=== PATIENT | male | born 1995 | race Caucasian/White ===

== ENCOUNTER 2021-10-04 07:47 | Inpatient (IN) ==
[2021-10-04] MEDS ORDERED: SODIUM CHLORIDE 0.9% 1000ML 1,000 ML IV STA (08:22)
[2021-10-04] MEDS ORDERED: ONDANSETRON INJ 2 MG/ML 2 ML VIAL IV STA (08:22)
[2021-10-04 08:39] LABS: Hematocrit (blood only) 52.5 % (42-52); Hemoglobin 18.2 g/dL (14.0-18.0); Immature Granulocytes # (auto) 0.04 K/uL (0.00-0.02); Immature Granulocytes % (auto) 0.2 %; Lymphocytes # (auto) 1.35 K/uL (1.2-3.4); Lymphocytes % (auto) 8.1 %; Mean Corpuscular Hgb Conc 34.7 g/dL (32-36); Mean Corpuscular Volume 86.6 fL (80-100); Mean Platelet Volume 11.5 fL (7.4-10.4); Monocytes # (auto) 0.39 K/uL (0.11-0.59); Monocytes % (auto) 2.3 %; Neutrophils # (auto) 14.82 K/uL (1.4-6.5); Neutrophils % (auto) 89.4 %; Platelet Count 257 K/uL (130-400); RDW Coefficient of Variation 12.9 % (11.5-14.5); RDW Standard Deviation 41.1 fL (36.4-46.3); Red Blood Count 6.06 M/uL (4.7-6.1)
--- NOTE | 2021-10-04 08:50 | Emergency Department Note ---
Impression & Plan DKA (diabetic ketoacidosis), Vomiting, Abdominal pain ED Provider Note NAME: TRU PAULINO AGE: 25 SEX: M : 1995 ARRIVES VIA: Walk-In INFORMANT: Patient, ED PROVIDER(S): Yuri Rousseau DO CHIEF COMPLAINT: Vomiting HPI: The patient is a 25-year-old male who is currently a college student who presented to the emergency department with nausea vomiting. The patient states that he started having symptoms approximately 2 days ago. The patient was eating at a fast food restaurant and started having symptoms after this. No other people were eating with him and he is unsure if he had something bad to eat at the restaurant which is why he is vomiting. He started noticing upper abdominal pain over the last 24 hours. He thinks he is vomited approximately 10 times over the last 24 hours. He was seen in our facility yesterday with similar complaints. At that time he was treated with IV fluids and was feeling much better. He continued to have worsening symptoms over the last 12 hours presented to the emergency department again today because his symptoms were not improving. He has a history of diabetes. He is a history of DKA in the past. He notices upper abdominal pain and lower chest pain. He states this began after the vomiting worsen. He notices no lower abdominal pain. He notices decreased urine output. He denies having any back pain. He has had no recent trauma. He denies having any fever. He has been trying the medication that was prescribed for him with only minimal relief in symptoms. The patient does not use marijuana products. ROS: See above HPI for pertinent positives & negatives. A total of 10 systems reviewed and were otherwise negative. PAST MEDICAL HISTORY: See Below PAST SURGICAL HISTORY: See Below FAMILY HISTORY: See Below SOCIAL HISTORY: See Below HOME MEDICATIONS: See Below ALLERGIES: See Below VITALS: See Below PHYSICAL EXAMINATION: GENERAL: The patient is awake and alert. The patient is somewhat anxious appearing. EYES: The conjunctivae are clear. The pupils are round and reactive. EARS, NOSE, MOUTH AND THROAT: The nose is without any evidence of any deformity. Mucous membranes are dry. NECK: The neck is nontender and supple. RESPIRATORY: Normal respiratory effort is noted there is no evidence of wheezing rhonchi or rales CARDIOVASCULAR: Tachycardic rate with regular rhythm was noted. There is no definite murmur. GASTROINTESTINAL: The abdomen is soft and mildly distended. There is no guarding rigidity appreciated. There is tenderness in the upper abdomen. MUSCULOSKELETAL/EXTREMITIES: There is no evidence of gross deformity full range of motion is noted in the hips and shoulders. SKIN: There is no obvious evidence of any rash. There are no petechiae, pallor or cyanosis noted. NEUROLOGIC: Patient is awake alert and oriented x3 strength is symmetric patellar reflexes are 2+ bilaterally MEDICAL DECISION MAKING: The patient is a 25-year-old male who presented to the emergency department for an evaluation of nausea vomiting. The patient had upper abdominal pain. He was seen in our facility for similar complaints. He was treated and was able to be discharged home. He returns today after nausea and vomiting became worse. He was treated with IV fluids and IV antiemetics but symptoms became worsened. The patient has a history of diabetes. He appears to have DKA by his laboratory findings which likely could be treated while in the emergency department but he continues to have vomiting. For this reason I do not feel he would do well as an outpatient. The [facility] hospitalist group was notified about the patient. They will evaluate the patient in the emergency department. Triage Nursing notes reviewed. Prior medical records reviewed Vital Signs: reviewed and remarkable for elevated blood pressure and t achycardia. Differential diagnosis: Etiologies such as appendicitis, diverticulitis, obstruction, inflammatory bowel disease, renal colic, PUD, biliary pathology, pancreatitis, mesenteric ischemia, aortic pathology, infections, genitourinary, UTI, perforated viscus, as well as others were entertained. ER treatment provided: See below Diagnostics interpreted by me: ECG: EKG was obtained in the emergency department. My interpretation is sinus tachycardia 118 bpm. There is no ectopy. There is no acute ST segment abnormalities noted. This was compared to a tracing from January 032020. There is an increase in the ventricular rate otherwise no significant changes were noted. Cardiac Monitoring: An order was placed for continuous cardiac monitoring. The monitor shows a rate of 110 bpm with sinus tachycardia Laboratory studies: As stated above and show below. Imaging studies: See below Consultation(s): Dr. Guzman was notified about the patient. Past Med/Surg History Medical History (Updated 10/04/21 @ 12:05 by Yuir Rousseau DO) ADHD Depression DKA (diabetic ketoacidoses) Hyperlipidemia Obesity (BMI 30-39.9) Uncontrolled diabetes mellitus Surgical History No pertinent past surgical history Family History Grandfather (Paternal) Diabetes Aunt Diabetes Sister Diabetes Mother Hypertension Other No pertinent family history Social History Smoking Status: Never smoker Hx Alcohol Use: No Hx Substance Use: No Preferred Language: Latvian Communication Ability: Effective Beliefs That Will Affect Care: None Current Living Situation: Other Current Living Situation Comment: Student housing Feels Safe at Home: Yes Assistive Devices: None Allergies Allergies Allergy/AdvReac Type Severity Reaction Status Date / Time No Known Allergies Allergy Verified 10/04/21 09:51 Home Meds Home Medications Medication Instructions Recorded Confirmed lisinopril 20 mg tablet 20 mg PO QAM 08/25/19 10/04/21 fluoxetine 20 mg tablet 20 mg PO QAM 04/18/21 10/04/21 methylphenidate HCl 54 mg 54 mg PO QAM 04/18/21 10/04/21 tablet,extended release 24 hr (Concerta) semaglutide 1 mg/dose (2 mg/1.5 1 mg SUBCUT WK 10/03/21 10/04/21 mL) subcutaneous pen injector (Ozempic) insulin glargine 100 unit/mL (3 88 unit SUBCUT QAM 10/04/21 10/04/21 mL) subcutaneous pen (Lantus Solostar U-100 Insulin) Previous Rx's Medication Instructions Recorded OneTouch Delica Plus Lancet 33 #400 ea NS 09/29/19 gauge (lancets) OneTouch Verio test strips (blood #400 ea NS 10/02/20 sugar diagnostic) metformin 500 mg tablet 1,000 mg PO BID 90 Days #360 tab 04/19/21 insulin lispro 200 unit/mL (3 mL) See Rx Instructions SUBCUT BID #30 05/09/21 subcutaneous pen (Humalog KwikPen ml U-200 Insulin) pen needle, diabetic 32 gauge x #150 ea 05/09/21" (BD Ultra-Fine Amanda Pen Needle) Results & Data (ED) Vital Signs Vital Signs - 24 hr 11/19/21 08:10 10/04/21 09:26 10/04/21 11:00 Temperature 36.4 C L Temperature Source Oral Pulse Rate 118 H Pulse Rate [Finger] 97 H 110 H Pulse Rhythm [Finger] Regular Pulse Strength [Finger] Normal Respiratory Rate 20 18 18 Respiratory Effort / Characteristics Non-Labored Spontaneous Respiratory Depth Normal Respiratory Pattern Regular Blood Pressure 128/89 Blood Pressure [Right Arm] 162/93 H 157/96 H Blood Pressure Mean 102 Blood Pressure Mean [Right Arm] 116 116 Blood Pressure Position [Right Arm] Lying Pulse Oximetry 98 100 99 Oxygen Delivery Method Room Air Room Air Room Air Sepsis Recent Fever Within 48 Hours No Sepsis New/Unexplained Change in Mental Status No Sepsis Action Taken by Nursing No Action Required Home Medications Current Medication List: was personally reviewed by me Laboratory Data Attestation: I reviewed the patient's lab results. Result diagrams: 10/04/21 08:30 10/04/21 08:30 Lab Results 10/04/21 10/04/21 10/04/21 Range/Units 08:30 08:30 09:34 WBC 16.60 H (4.8-10.8) K/uL RBC 6.06 (4.7-6.1) M/uL Hgb 18.2 H (14.0-18.0) g/dL Hct 52.5 H (42-52) % MCV 86.6 (80-100) fL MCH 30.0 (25-34) pg MCHC 34.7 (32-36) g/dL RDW Std Deviation 41.1 (36.4-46.3) fL RDW Coeff of Chris 12.9 (11.5-14.5) % Plt Count 257 (130-400) K/uL MPV 11.5 H (7.4-10.4) fL Immature Gran % (Auto) 0.2 % Neut % (Auto) 89.4 % Lymph % (Auto) 8.1 % Dundy % (Auto) 2.3 % Eos % (Auto) 0.0 % Baso % (Auto) 0.0 % Neut # (Auto) 14.82 H (1.4-6.5) K/uL Lymph # (Auto) 1.35 (1.2-3.4) K/uL Dundy # (Auto) 0.39 (0.11-0.59) K/uL Eos # (Auto) 0.00 (0-0.5) K/uL Baso # (Auto) 0.00 (0-0.2) K/uL Immature Gran # (Auto) 0.04 H (0.00-0.02) K/uL VBG pH 7.32 L (7.36-7.41) VBG pCO2 35 L (38-50) mmHg VBG pO2 32 mmHg VBG HCO3 18 mmol/L VBG O2 Saturation 62.0 % VBG Base Excess -7.4 mEq/L Barometric Pressure 738.1 mm/Hg Sodium 133 L (136-145) mmol/L Potassium 4.3 (3.5-5.1) mmol/L Chloride 99 (98-107) mmol/L Carbon Dioxide 15 L (21-32) mmol/L Anion Gap 20.0 H (3-11) BUN 14 (7-18) mg/dl Creatinine 1.03 (0.6-1.4) mg/dl Est Cr Clr Drug Dosing 146.9 ml/min Est GFR ( Amer) 118.1 ml/min Est GFR (Non-Af Amer) 101.9 ml/min BUN/Creatinine Ratio 13.8 (10-20) Glucose 350 H* (70-99) mg/dl Calcium 9.8 (8.5-10.1) mg/dl Total Bilirubin 0.8 (0.2-1) mg/dl AST 11 L (15-37) U/L ALT 61 (12-78) U/L Alkaline Phosphatase 50 (45-117) U/L Troponin I < 0.015 (0-0.045) ng/ml Total Protein 9.3 H (6.4-8.2) gm/dl Albumin 4.7 (3.4-5.0) gm/dl Globulin 4.6 H (2.5-4.0) gm/dl Albumin/Globulin Ratio 1.0 (0.9-2) Lipase 143 (73-393) U/L Beta-Hydroxybutyric Acd 62.43 H (0.2-2.81) mg/dl Urine Color Urine Appearance (Clear) Urine pH (4.5-7.5) Ur Specific Corning (1.000-1.030) Urine Protein (Negative) Urine Glucose (UA) (Negative) Urine Ketones (Negative) Urine Blood (Negative) Urine Nitrite (Negative) Urine Bilirubin (Negative) Urine Urobilinogen (Negative) Ur Leukocyte Esterase (Negative) Urine WBC (Auto) (0-5) /hpf Urine RBC (Auto) (0-4) /hpf U Hyaline Cast (Auto) (0-5) /lpf U Epithel Cells (Auto) (0-5) /lpf Urine Bacteria (Auto) (Negative) SARS-CoV-2, RNA, NAAT (NEGATIVE) 10/04/21 10/04/21 Range/Units 09:50 10:23 WBC (4.8-10.8) K/uL RBC (4.7-6.1) M/uL Hgb (14.0-18.0) g/dL Hct (42-52) % MCV (80-100) fL MCH (25-34) pg MCHC (32-36) g/dL RDW Std Deviation (36.4-46.3) fL RDW Coeff of Chris (11.5-14.5) % Plt Count (130-400) K/uL MPV (7.4-10.4) fL Immature Gran % (Auto) % Neut % (Auto) % Lymph % (Auto) % Dundy % (Auto) % Eos % (Auto) % Baso % (Auto) % Neut # (Auto) (1.4-6.5) K/uL Lymph # (Auto) (1.2-3.4) K/uL Dundy # (Auto) (0.11-0.59) K/uL Eos # (Auto) (0-0.5) K/uL Baso # (Auto) (0-0.2) K/uL Immature Gran # (Auto) (0.00-0.02) K/uL VBG pH (7.36-7.41) VBG pCO2 (38-50) mmHg VBG pO2 mmHg VBG HCO3 mmol/L VBG O2 Saturation % VBG Base Excess mEq/L Barometric Pressure mm/Hg Sodium (136-145) mmol/L Potassium (3.5-5.1) mmol/L Chloride (98-107) mmol/L Carbon Dioxide (21-32) mmol/L Anion Gap (3-11) BUN (7-18) mg/dl Creatinine (0.6-1.4) mg/dl Est Cr Clr Drug Dosing ml/min Est GFR ( Amer) ml/min Est GFR (Non-Af Amer) ml/min BUN/Creatinine Ratio (10-20) Glucose (70-99) mg/dl Calcium (8.5-10.1) mg/dl Total Bilirubin (0.2-1) mg/dl AST (15-37) U/L ALT (12-78) U/L Alkaline Phosphatase (45-117) U/L Troponin I (0-0.045) ng/ml Total Protein (6.4-8.2) gm/dl Albumin (3.4-5.0) gm/dl Globulin (2.5-4.0) gm/dl Albumin/Globulin Ratio (0.9-2) Lipase (73-393) U/L Beta-Hydroxybutyric Acd (0.2-2.81) mg/dl Urine Color Yellow Urine Appearance Clear (Clear) Urine pH 5.0 (4.5-7.5) Ur Specific Corning 1.039 H (1.000-1.030) Urine Protein 1+ H (Negative) Urine Glucose (UA) 3+ H (Negative) Urine Ketones 4+ H (Negative) Urine Blood Negative (Negative) Urine Nitrite Negative (Negative) Urine Bilirubin Negative (Negative) Urine Urobilinogen Negative (Negative) Ur Leukocyte Esterase Negative (Negative) Urine WBC (Auto) 0 (0-5) /hpf Urine RBC (Auto) 0-4 (0-4) /hpf U Hyaline Cast (Auto) 0 (0-5) /lpf U Epithel Cells (Auto) 0-5 (0-5) /lpf Urine Bacteria (Auto) Negative (Negative) SARS-CoV-2, RNA, NAAT NEGATIVE (NEGATIVE) Administered Medications Discontinued Medications Sodium Chloride (Nss 1000ml) 1,000 mls @ 999 mls/hr IV .Q1H1M STA Stop: 10/04/21 09:22 Last Infusion: 10/04/21 09:47 Dose: 0 mls/hr Documented by: [id number] Admin: 10/04/21 08:42 Dose: 999 mls/hr Documented by: [id number] Sodium Chloride (Nss 1000ml) 1,000 mls @ 999 mls/hr IV .Q1H1M ONE Stop: 10/04/21 10:23 Last Infusion: 10/04/21 10:44 Dose: 0 mls/hr Documented by: [id number] Admin: 10/04/21 09:47 Dose: 999 mls/hr Documented by: [id number] Promethazine HCl (Phenergan) 12.5 mg in 50.5 mls @ 202 mls/hr IV NOW STA Stop: 10/04/21 10:29 Last Infusion: 10/04/21 10:44 Dose: 0 mls/hr Documented by: [id number] Admin: 10/04/21 10:29 Dose: 202 mls/hr Documented by: [id number] Sodium Chloride (Nss 1000ml) 1,000 mls @ 999 mls/hr IV .Q1H1M ONE Stop: 10/04/21 11:15 Last Admin: 10/04/21 11:03 Dose: 999 mls/hr Documented by: [id number] Ondansetron HCl (Ondansetron Inj 2 Mg/Ml 2 Ml Vial) 4 mg IV NOW STA Stop: 10/04/21 08:23 Last Admin: 10/04/21 08:42 Dose: 4 mg Documented by: [id number] Imaging Data Radiologist's Impression: KUB X-Ray 10/04/21 08:22 KUB HISTORY: Generalized abdominal pain COMPARISON: Abdomen and pelvis CT 10/03/2021. FINDINGS: The bowel gas pattern is unremarkable. There are no dilated loops of small bowel to suggest an obstruction. No renal calculi. No ureteral calculi. Calcifications in the deep pelvis likely represent phleboliths. There are old, healed left pubic ring fractures. No pneumoperitoneum or pneumatosis. IMPRESSION: No evidence for bowel obstruction. ACT 112: Negative or not required by law. Electronically signed by: Phani Carlson M.D. 10/04/2021 9:51 AM Chest X-Ray 10/04/21 08:23 XR chest 1V portable CLINICAL HISTORY: pain TECHNIQUE: Single frontal radiograph of the chest was obtained. Comparison: Comparison is made to chest and abdomen radiographs 09/16/2018 FINDINGS: No lines and tubes are seen. The cardiomediastinal silhouette is normal. The lungs are clear. No evidence of pleural effusion or pneumothorax. IMPRESSION: No acute chest disease. ACT 112: Negative or not required by law. Electronically signed by: Iker Sunshine M.D. 10/04/2021 9:29 AM Discharge Plan Visit Data Chief Complaint: Abdominal Pain Stated Complaint: HERE 24 HOURS AGO/STOMACH PAIN WORSE ED Provider: Yuri Rousseau Discharge Problem: DKA (diabetic ketoacidosis), Vomiting, Abdominal pain Patient Disposition: Being Evaluated by Hospitalist Forms Stand Alone Forms: [facility] Prescriptions Prescriptions: No Action (DME) OneTouch Verio test strips Strip See Rx Instructions .ROUTE .MEDSUPPLY Qty: 400 RF: 3 metformin 500 mg tablet 1,000 mg PO BID 90 Days Qty: 360 RF: 1 (DME) pen needle, diabetic [BD Ultra-Fine Amanda Pen Needle] 32 gauge x 5/32" ne edle See Rx Instructions .ROUTE .MEDSUPPLY Qty: 150 RF: 5 Humalog KwikPen Insulin 200 unit/mL (3 mL) insulin pen See Rx Instructions subcut BID Qty: 30 RF: 5 methylphenidate HCl [Concerta] 54 mg tablet extended release 24hr 54 mg PO QAM RF: 0 (DME) lancets [OneTouch Delica Plus Lancet] 33 gauge misc See Rx Instructions .ROUTE .MEDSUPPLY Qty: 400 RF: 3 fluoxetine 20 mg tablet 20 mg PO QAM RF: 0 lisinopril 20 mg Tablet 20 mg PO QAM RF: 0 Lantus Solostar U-100 Insulin 100 unit/mL (3 mL) insulin pen 88 unit subcut QAM RF: 0 Ozempic 1 mg/dose (2 mg/1.5 mL) pen injector 1 mg subcut WK RF: 0 Referrals Referrals: Brian Camp DO [Primary Care Provider] -
[2021-10-04 09:06] LABS: Alanine Aminotransferase 61 U/L (12-78); Albumin Level 4.7 gm/dl (3.4-5.0); Alkaline Phosphatase 50 U/L (45-117); Aspartate Aminotransferase 11 U/L (15-37); BUN Creatinine Ratio 13.8 (10-20); Bilirubin,Total 0.8 mg/dl (0.2-1); Blood Urea Nitrogen 14 mg/dl (7-18); Calcium 9.8 mg/dl (8.5-10.1); Carbon Dioxide 15 mmol/L (21-32); Chloride 99 mmol/L (98-107); Creatinine Clr Calc Pharmacy 146.9 ml/min; Est GFR (African American) 118.1 ml/min; Est GFR (Non-African American) 101.9 ml/min; Globulin 4.6 gm/dl (2.5-4.0); Glucose 350 mg/dl (70-99); Lipase 143 U/L (73-393); Potassium 4.3 mmol/L (3.5-5.1); Sodium 133 mmol/L (136-145); Total Protein 9.3 gm/dl (6.4-8.2); Troponin I < 0.015 ng/ml (0-0.045)
[2021-10-04] MEDS ORDERED: SODIUM CHLORIDE 0.9% 1000ML 1,000 ML IV ONE ×2 (09:23→10:15)
--- NOTE | 2021-10-04 09:30 | XRay Report ---
XR chest 1V portable CLINICAL HISTORY: pain TECHNIQUE: Single frontal radiograph of the chest was obtained. Comparison: Comparison is made to chest and abdomen radiographs 09/16/2018 FINDINGS: No lines and tubes are seen. The cardiomediastinal silhouette is normal. The lungs are clear. No evid ence of pleural effusion or pneumothorax. IMPRESSION: No acute chest disease. ACT 112: Negative or not required by law. Electronically signed by: Iker Sunshine M.D. 10/04/2021 9:29 AM
[2021-10-04 09:49] LABS: Base Excess VBG -7.4 mEq/L; pH VBG 7.32 (7.36-7.41)
--- NOTE | 2021-10-04 09:52 | XRay Report ---
KUB HISTORY: Generalized abdominal pain COMPARISON: Abdomen and pelvis CT 10/03/2021. FINDINGS: The bowel gas pattern is unremarkable. There are no dilated loops of small bowel to suggest an obstruction. No renal calculi. No ureteral calculi. Calcifications in the deep pelvis likely rep resent phleboliths. There are old, healed left pubic ring fractures. No pneumoperitoneum or pneumatos is. IMPRESSION: No evidence for bowel obstruction. ACT 112: Negative or not required by law. Electronically signed by: Phani Carlson M.D. 10/04/2021 9:51 AM
[2021-10-04 09:56] LABS: Beta-Hydroxybutyrate 62.43 mg/dl (0.2-2.81)
[2021-10-04 10:05] LABS: Appearance Urine Clear (Clear); Bacteria Urine Automated Negative (Negative); Bilirubin Urine Negative (Negative); Blood Urine Negative (Negative); Cast Urine Automated 0 /lpf (0-5); Color Urine Yellow; Epithelial Cell Urine Auto 0-5 /lpf (0-5); Glucose Urine UA 3+ (Negative); Ketones Urine 4+ (Negative); Leukocyte Esterase Urine Negative (Negative); Nitrite Urine Negative (Negative); Protein Urine 1+ (Negative); RBC Urine Automated 0-4 /hpf (0-4); Specific Gravity Urine 1.039 (1.000-1.030); Urobilinogen Urine Negative (Negative); WBC Urine Automated 0 /hpf (0-5)
[2021-10-04] MEDS ORDERED: PROMETHAZINE 12.5 MG/50.5 ML BAG IV STA (10:15)
[2021-10-04] MEDS ORDERED: DKA GOAL RANGE 150-250 mg/dl ONE (10:59)
[2021-10-04] MEDS ORDERED: STAT IV Infusion **Titration per Protocol STA ×2 (10:59)
[2021-10-04] MEDS ORDERED: PHARMACY GLYCEMIC MGMT CONSULT PRN (10:59)
[2021-10-04] MEDS ORDERED: PENDING D5 1/2NS+20mEq KCL IVF SCH (11:00)
[2021-10-04] MEDS ORDERED: INSULIN REGULAR 250 UNITS in SODIUM CHLORIDE 0.9% 247.5 ML IV SCH (11:10)
[2021-10-04] MEDS ORDERED: NovoLIN-R BOLUS FROM BAG IV ONE (11:15)
--- NOTE | 2021-10-04 11:16 | History & Physical Report ---
Date of Service October 04, 2021 Assessment & Plan (1) DKA (diabetic ketoacidosis): Plan: DKA in the setting of likely food bourne illness resulting in vomiting and hypovolemia- mild - Glucose 350, PH 7.32, HCo3 15 - K 4.1- 20 MEQ KCL IV (10x2) - Received 2 liters crysalliod in EMD- continue LR at 125ml/hour - Insulin drip no bolus - DKA protocol- 0.1units/kg/hr - Goal 150-250 for transition - Follow electrolytes- replete as directed - likely to correct with volume replacement - His HGB A1c in 05/06- 14 - NPO - LR at 125 , add dextrose with IVF when BG <250 (2) Vomiting: Plan: Secondary to food bourne illness - GI coctail x1 - Protonix 40mg IV BID - NPO- advance when symptoms are improved - No role for abx therapy at this time (3) Leukocytosis: Plan: WBC 16--> was 9 yesterday; HGB 18; netrophil predominence - High component of hemoconcentration - Volume replete- follow in am - no fevers - PCT and lactate pending (4) Uncontrolled diabetes mellitus: Plan: As above - once controlled BG can transition back to Basal bolus insulin (5) Hypertension: Plan: Cotninue DELILAH- follow renal function (6) Hyperlipidemia: Plan: [id number] mg/dl (0-200) H004/19/21 LDL Cholesterol, Ksuigqjsoq218 mg/dl04/19/21 HDL Rbogkfpcfuk04 mg/dl04/19/21 Euvejlhfirvsg586 mg/dl (0- 150)04/19/21 - Not on lipid lowering medication as outpatient- continues with improving diabetic control and weight loss - PCP (7) Depression: Plan: Cotninue fluoxetine 20mg daily (8) ADHD: Plan: Continue methylphenidate (9) Obesity (BMI 30-39.9): Plan: As above - is progressing through diabetes managment and encouragment - 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 Patient comes to the EMD today for complaints of continued nausea/vomiting with inability to stay hydrated. Patient reports eating chicken nuggets at [place] on , he made it 1/[address] through his meals ~20min before he had onset of nausea followed by vomiting. He was seen in the [facility] yesterday for same complaint, however at that time he felt better following IVF and antinausea medications, he did not have evidence of DKA at that time, with normal HCO3 but with hyperglycemia. Today upon evaluation he has elevated BG, HCO3 15, with AG 20 and PH 7.32. Patient has not vomited since coming to the [facility], but endorses that his vomiting is light brown in color with some brown chunks in it, no blood or mucous. His last BM was morning and was normal. He has not developed any diarrhea. He has not had any food intake since evening secondary to nausea and vomiting. He is unable to keep water down so he has not been drinking to replace his losses. The patient voided this morning which was dark barbara in color. His UA revealed SG of 1.039, mild protein, Ketones and Glucose, no blood and no bacteria. He had routine labs performed as well. CBC is notable for WBC 18 and HGB of 18 with Neutrophil predominance of 14. Although likely food borne illness this also has great degree of hemoconcentration to it. Patient will be admitted for rehydration, insulin infusion with DKA protocol, monitoring lab results and resolution of symptoms. Lacate pending, po4 pending, PCT pending. Patient has had his COVID vaccine and his COVID test on admission is: NEGATIVE Allergies Allergy/AdvReac Type Severity Reaction Status Date / Time No Known Allergies Allergy Verified 10/04/21 09:51 Home Medications Medication Instructions Recorded Confirmed Type lisinopril 20 mg tablet 20 mg PO QAM 08/25/19 10/04/21 History OneTouch Delica Plus Lancet 33 #400 ea NS 09/29/19 07/25/21 Rx gauge (lancets) OneTouch Verio test strips (blood #400 ea NS 10/02/20 07/25/21 Rx sugar diagnostic) fluoxetine 20 mg tablet 20 mg PO QAM 04/18/21 10/04/21 History methylphenidate HCl 54 mg 54 mg PO QAM 04/18/21 10/04/21 History tablet,extended release 24 hr (Concerta) metformin 500 mg tablet 1,000 mg PO BID 90 Days #360 tab 04/19/21 10/04/21 Rx insulin lispro 200 unit/mL (3 mL) See Rx Instructions SUBCUT BID #30 05/09/21 10/04/21 Rx subcutaneous pen (Humalog KwikPen ml U-200 Insulin) pen needle, diabetic 32 gauge x #150 ea 05/09/21 07/25/21 Rx 5/32" (BD Ultra-Fine Amanda Pen Needle) semaglutide 1 mg/dose (2 mg/1.5 1 mg SUBCUT WK 10/03/21 10/04/21 History mL) subcutaneous pen injector (Ozempic) insulin glargine 100 unit/mL (3 88 unit SUBCUT QAM 10/04/21 10/04/21 History mL) subcutaneous pen (Lantus Solostar U-100 Insulin) Past Med/Surg History Medical History (Updated 10/04/21 @ 12:05 by Yuri Rousseau DO) ADHD Depression DKA (diabetic ketoacidoses) Hyperlipidemia Obesity (BMI 30-39.9) Uncontrolled diabetes mellitus Surgical History No pertinent past surgical history Family History Grandfather (Paternal) Diabetes Aunt Diabetes Sister Diabetes Mother Hypertension Other No pertinent family history Social History Smoking Status: Never smoker Hx Alcohol Use: No Hx Substance Use: No Preferred Language: Panamanian Communication Ability: Effective Beliefs That Will Affect Care: None Current Living Situation: Other Current Living Situation Comment: Student housing Feels Safe at Home: Yes Assistive Devices: None Review of Systems Review of Systems: REVIEW OF SYSTEMS: Constitutional: No fever, sweats or chills Eyes: No diplopia, no worsening or blurred vision ENT: normal hearing, no trouble swallowing Respiratory: No cough, sputum, dyspnea at rest or on exertion Cardiovascular: No chest pain, tightness or palpitations Abdomen: (+) pain, nausea, vomiting, NO diarrhea or constipation Musculoskeletal: No joint pain, calf pain, swelling Neurologic: No weakness, numbness/tingling, or balance problems Psychiatric: (+) anxiety or depression not accute Skin: No rash or itch Physical Exam Physical Exam: PHYSICAL EXAM: General: awake, alert, no apparent distress Head: Normocephalic, atraumatic ENT: PERRL, EOMI, no pharyngeal exudate, mucous membranes dry Neuro: AAO x 3, speech clear and appropriate, strength intact bilaterally 5/5, sensation intact and equal all extremities and dermatomes, no pronator drift Chest: equal rise and fall of the chest, no accessory muscle use, no heaves or thrills, Clear to auscultation, on room air, Cardiac: Regular rate and rhythm, telemetry reviewed- NSR, skin warm dry, cap refill <3 seconds, peripheral pulses +2 no JVD, no murmur, no edema GI: NABS x 4 quadrants, soft, tender to palpation LUQ, with burning feeling, no rebound, guarding or tenderness, negative murphys sign : Spontaneously voiding, no pain, no CVA tenderness, Extremities: Normal inspection, no peripheral edema or erythema, calfs nontender to palpation Psych: Normal mood and affect Skin: no rash or erythema, no areas of infection noted Results & Data Results & Data ([facility]) Vital Signs (Past 12 Hours) Vital Signs Temp Pulse Pulse Resp BP BP Pulse Ox 10/04/21 11:00 110 H 18 157/96 H 99 10/04/21 09:26 97 H 18 162/93 H 100 10/04/21 08:10 36.4 C L 118 H 20 128/89 98 Laboratory Results Abnormal lab results 10/04/21 10/04/21 10/04/21 Range/Units 08:30 08:30 09:34 WBC 16.60 H (4.8-10.8) K/uL Hgb 18.2 H (14.0-18.0) g/dL Hct 52.5 H (42-52) % MPV 11.5 H (7.4-10.4) fL Neut # (Auto) 14.82 H (1.4-6.5) K/uL Immature Gran # (Auto) 0.04 H (0.00-0.02) K/uL VBG pH 7.32 L (7.36-7.41) VBG pCO2 35 L (38-50) mmHg Sodium 133 L (136-145) mmol/L Carbon Dioxide 15 L (21-32) mmol/L Anion Gap 20.0 H (3-11) Glucose 350 H* (70-99) mg/dl AST 11 L (15-37) U/L Total Protein 9.3 H (6.4-8.2) gm/dl Globulin 4.6 H (2.5-4.0) gm/dl Beta-Hydroxybutyric Acd 62.43 H (0.2-2.81) mg/dl Ur Specific [place] (1.000-1.030) Urine Protein (Negative) Urine Glucose (UA) (Negative) Urine Ketones (Negative) 10/04/21 Range/Units 09:50 WBC (4.8-10.8) K/uL Hgb (14.0-18.0) g/dL Hct (42-52) % MPV (7.4-10.4) fL Neut # (Auto) (1.4-6.5) K/uL Immature Gran # (Auto) (0.00-0.02) K/uL VBG pH (7.36-7.41) VBG pCO2 (38-50) mmHg Sodium (136-145) mmol/L Carbon Dioxide (21-32) mmol/L Anion Gap (3-11) Glucose (70-99) mg/dl AST (15-37) U/L Total Protein (6.4-8.2) gm/dl Globulin (2.5-4.0) gm/dl Beta-Hydroxybutyric Acd (0.2-2.81) mg/dl Ur Specific [place] 1.039 H (1.000-1.030) Urine Protein 1+ H (Negative) Urine Glucose (UA) 3+ H (Negative) Urine Ketones 4+ H (Negative) Diagnostic Findings KUB X-Ray 10/04/21 08:22 KUB HISTORY: Generalized abdominal pain COMPARISON: Abdomen and pelvis CT 10/03/2021. FINDINGS: The bowel gas pattern is unremarkable. There are no dilated loops of small bowel to suggest an obstruction. No renal calculi. No ureteral calculi. Calcifications in the deep pelvis likely represent phleboliths. There are old, healed left pubic ring fractures. No pneumoperitoneum or pneumatosis. IMPRESSION: No evidence for bowel obstruction. ACT 112: Negative or not required by law. Electronically signed by: Phani Carlson M.D. 10/04/2021 9:51 AM Chest X-Ray 10/04/21 08:23 XR chest 1V portable CLINICAL HISTORY: pain TECHNIQUE: Single frontal radiograph of the chest was obtained. Comparison: Comparison is made to chest and abdomen radiographs 09/16/2018 FINDINGS: No lines and tubes are seen. The cardiomediastinal silhouette is normal. The lungs are clear. No evidence of pleural effusion or pneumothorax. IMPRESSION: No acute chest disease. ACT 112: Negative or not required by law. Electronically signed by: Iker Sunshine M.D. 10/04/2021 9:29 AM Medications Administered Home Medications lisinopril 20 mg tablet 20 mg PO QAM 08/25/19 [History Confirmed 10/04/21] CogMetalTouch Delica Plus Lancet 33 gauge (lancets) #400 ea NS 09/29/19 [Rx Confirmed 07/25/21] CogMetalTouch Verio test strips (blood sugar diagnostic) #400 ea NS 10/02/20 [Rx Confirmed 07/25/21] fluoxetine 20 mg tablet 20 mg PO QAM 04/18/21 [History Confirmed 10/04/21] methylphenidate HCl 54 mg tablet,extended release 24 hr (Concerta) 54 mg PO QAM 04/18/21 [History Confirmed 10/04/21] metformin 500 mg tablet 1,000 mg PO BID 90 Days #360 tab 04/19/21 [Rx Confirmed 10/04/21] insulin lispro 200 unit/mL (3 mL) subcutaneous pen (Humalog KwikPen U-200 Insulin) See Rx Instructions SUBCUT BID #30 ml 05/09/21 [Rx Confirmed 10/04/21] pen needle, diabetic 32 gauge x 5/32" (BD Ultra-Fine Amanda Pen Needle) #150 ea 05/09/21 [Rx Confirmed 07/25/21] semaglutide 1 mg/dose (2 mg/1.5 mL) subcutaneous pen injector (Ozempic) 1 mg SUBCUT WK 10/03/21 [History Confirmed 10/04/21] insulin glargine 100 unit/mL (3 mL) subcutaneous pen (Lantus Solostar U-100 Insulin) 88 unit SUBCUT QAM 10/04/21 [History Confirmed 10/04/21] Active Medications Al Hydrox/Mg Hydrox/Simethicone 18 ml/ Lidocaine HCl 6 ml/ BARCODE IDENTIFIER 1 ea 0 ml PO ONE ONE Stop: 10/04/21 11:21 Potassium Chloride (K Oniel / Wtr) 10 meq in 100 mls @ 100 mls/hr IV Q1H HARJIT Stop: 10/04/21 12:59 Insulin Human Regular 250 (units/ Sodium Chloride) 250 mls @ 10 mls/hr IV .Q24H HARJTI; Protocol Stop: 11/03/21 11:09 Lactated Ringer's (Lr) 1,000 mls @ 125 mls/hr IV .Q8H HARJIT Stop: 11/03/21 11:30 Insulin Aspart (Insulin Aspart 100 Units/Ml 3 Ml Pen) 0 units SC ACHS HARJIT Stop: 11/03/21 11:29 Miscellaneous (Pending D5 1/2ns+20meq Kcl Ivf) 1 ea N/A Q2H HARJIT Stop: 11/03/21 10:59 Miscellaneous Information (Pharmacy Glycemic Mgmt Consult) 1 ea N/A UD PRN PRN Reason: Consult Stop: 11/03/21 10:58 Discontinued Medications Sodium Chloride (Nss 1000ml) 1,000 mls @ 999 mls/hr IV .Q1H1M STA Stop: 10/04/21 09:22 Last Infusion: 10/04/21 09:47 Dose: 0 mls/hr Documented by: [id number] Admin: 10/04/21 08:42 Dose: 999 mls/hr Documented by: [id number] Sodium Chloride (Nss 1000ml) 1,000 mls @ 999 mls/hr IV .Q1H1M ONE Stop: 10/04/21 10:23 Last Infusion: 10/04/21 10:44 Dose: 0 mls/hr Documented by: [id number] Admin: 10/04/21 09:47 Dose: 999 mls/hr Documented by: [id number] Promethazine HCl (Phenergan) 12.5 mg in 50.5 mls @ 202 mls/hr IV NOW STA Stop: 10/04/21 10:29 Last Infusion: 10/04/21 10:44 Dose: 0 mls/hr Documented by: [id number] Admin: 10/04/21 10:29 Dose: 202 mls/hr Documented by: [id number] Sodium Chloride (Nss 1000ml) 1,000 mls @ 999 mls/hr IV .Q1H1M ONE Stop: 10/04/21 11:15 Last Admin: 10/04/21 11:03 Dose: 999 mls/hr Documented by: [id number] Ondansetron HCl (Ondansetron Inj 2 Mg/Ml 2 Ml Vial) 4 mg IV NOW STA Stop: 10/04/21 08:23 Last Admin: 10/04/21 08:42 Dose: 4 mg Documented by: [id number] Code Status & VTE Plan Code Status Sinus tachycardia Possible Left atrial enlargement Borderline ECG When compared with ECG of 03-JAN-2021 11:24, Vent. rate has increased BY 50 BPM VTE Prophylaxis Plan VTE Prophylaxis will be ordered: Yes Supervising Physician Co-Signing Physician Notes Patient was seen and examined independently I discussed the case with Mele CHASE I reviewed pertinent past medical social family history and also the plan of care and agree with the plan of care. Patient presents with DKA unclear whether initiated by gastrointestinal illness or his GI symptoms are result of the DKA however he does have anion gap is type I diabetic we will place an insulin drip hydrate and replete potassium and follow laboratories including phosphorus. Examination patient only really complains about dyspepsia his exam is benign will use Protonix and GI cocktail and follow clinically appreciate help of glycemic pharmacist and managing DKA infusion Any exceptions will be noted below PG Care Time/CCT Total # of Minutes Spent Total Time Spent with Patient: Total time spent is greater than 50% in coordination of care (as documented) at patient's floor/unit and/or counseling patient: Coding Level of Care Code 65332 Initial Inpt Care Lvl 3 Diagnoses ADHD F90.9 Depression F32.9 Hyperlipidemia E78.5 Uncontrolled diabetes mellitus E11.65 Diabetes mellitus type: type 2 Glycemic state: with hyperglycemia DKA (diabetic ketoacidosis) E11.10 Vomiting R11.10 Hypertension I10 Obesity (BMI 30-39.9) E66.9 Leukocytosis D72.829 (1) Uncontrolled diabetes mellitus Diabetes mellitus type: type 2 Glycemic state: with hyperglycemia Qualified Code(s): E11.65 - Type 2 diabetes mellitus with hyperglycemia
[2021-10-04] MEDS ORDERED: ALUMINUM/MAGNESIUM SUSP 18 ML, LIDOCAINE VISCOUS 2% SOLN 6 ML, BARCODE IDENTIFIER 1 EA PO ONE (11:20)
[2021-10-04] MEDS ORDERED: LACTATED RINGER'S 1,000 ML IV SCH (11:31)
[2021-10-04] MEDS: POTASSIUM CHLORIDE / WTR 10 MEQ/100 ML PLCT IV SCH ×2 (12:15→13:21)
[2021-10-04 12:26] LABS: BUN Creatinine Ratio 15.2 (10-20); Calcium 8.2 mg/dl (8.5-10.1); Creatinine Clr Calc Pharmacy 182.3 ml/min; Est GFR (African American) 143.7 ml/min; Potassium 4.3 mmol/L (3.5-5.1)
[2021-10-04] MEDS ORDERED: GI COCKTAIL ED USE PO ONE (12:27)
[2021-10-04] MEDS ORDERED: CALCIUM GLUCONATE 10% 1,000 MG in SODIUM CHLORIDE 0.9% 50 ML IV ONE (13:20)
--- NOTE | 2021-10-04 13:47 | Pharmacy Report ---
Pharmacy Glycemic Short Note 2 - Date of Service October 04, 2021 - Glycemic Short BSG Results (Last 24 hours): 10/04/21 10/04/21 10/04/21 08:30 11:41 12:04 Glucose 350 H* 256 H POC Glucose 221 H OUTPATIENT ANTIDIABETIC REGIMEN: * A1C >14% (04/2021); new A1C pending * Lantus 88 units qAM * Humalog 30 units TIDWM * Ozempic 1mg sq weekly ASSESSMENT: * DKA in setting of N/V: * initial pH 7.32, HCO3-15; AG-20; Glu-350. (+) ketones * Pt NPO - on insulin drip per DKA protocol * Plan to assess needs from hourly drip rates and assist with conversion to SQ basal/bolus once pH normalized, anion gap is closed and HCO3>/= 15. * Novolog on board for carb coverage (per calculator) once patient ordered a diet * D51/2NS + 20mEq KCl @ 125mL/hr initiated for BSG <250mg/dL PLAN FOR INPATIENT GLYCEMIC CONTROL: * Hold outpatient oral diabetes medications * Insulin infusion per DKA protocol
[2021-10-04] MEDS: INSULIN ASPART 100 UNITS/ML 3 ML PEN SC SCH ×3 (14:17→20:20)
[2021-10-04] MEDS: PANTOprazole 40 MG in SYRINGE 0 ML IV SCH ×2 (14:30→21:16)
[2021-10-04] MEDS: D5W AND 1/2NSS + 20MEQ KCL 20 MEQ/1,000 ML BAG IV SCH ×2 (14:30→22:23)
[2021-10-04] MEDS: lisinopril 20 MG TAB PO SCH (16:24)
[2021-10-04] MEDS: ENOXAPARIN INJ 40 MG/0.4 ML SYR SQ SCH (16:25)
[2021-10-04 16:51] LABS: BUN Creatinine Ratio 15.1 (10-20); Calcium 8.7 mg/dl (8.5-10.1); Creatinine Clr Calc Pharmacy 199.3 ml/min; Est GFR (Non-African American) 128.6 ml/min; Magnesium 2.2 mg/dl (1.8-2.4); Phosphorus 2.7 mg/dl (2.5-4.9); Potassium 3.9 mmol/L (3.5-5.1)
[2021-10-04] MEDS ORDERED: chlorproMAZINE HCL 25 MG/ML AMP IM ONE (17:15)
[2021-10-04 21:32] LABS: Calcium 8.7 mg/dl (8.5-10.1); Est GFR (African American) 145.2 ml/min; Est GFR (Non-African American) 125.3 ml/min; Magnesium 2.2 mg/dl (1.8-2.4); Phosphorus 2.2 mg/dl (2.5-4.9); Potassium 3.9 mmol/L (3.5-5.1)
[2021-10-04] MEDS: ONDANSETRON INJ 2 MG/ML 2 ML VIAL IV PRN (22:27)
[2021-10-05 00:34] LABS: BUN Creatinine Ratio 14.6 (10-20); Blood Urea Nitrogen 10 mg/dl (7-18); Calcium 8.7 mg/dl (8.5-10.1); Carbon Dioxide 23 mmol/L (21-32); Chloride 109 mmol/L (98-107); Creatinine Clr Calc Pharmacy 216.4 ml/min; Est GFR (African American) > 150.0 ml/min; Glucose 165 mg/dl (70-99); Magnesium 2.1 mg/dl (1.8-2.4); Phosphorus 1.8 mg/dl (2.5-4.9); Potassium 3.6 mmol/L (3.5-5.1); Sodium 137 mmol/L (136-145)
[2021-10-05 03:31] LABS: Basophils # (auto) 0.01 K/uL (0-0.2); Basophils % (auto) 0.1 %; Eosinophils # (auto) 0.02 K/uL (0-0.5); Eosinophils % (auto) 0.2 %; Hemoglobin 16.3 g/dL (14.0-18.0); Immature Granulocytes # (auto) 0.02 K/uL (0.00-0.02); Immature Granulocytes % (auto) 0.2 %; Lymphocytes # (auto) 2.65 K/uL (1.2-3.4); Lymphocytes % (auto) 21.8 %; Mean Corpuscular Hemoglobin 30.2 pg (25-34); Mean Corpuscular Hgb Conc 34.7 g/dL (32-36); Mean Platelet Volume 11.1 fL (7.4-10.4); Monocytes # (auto) 1.13 K/uL (0.11-0.59); Monocytes % (auto) 9.3 %; Neutrophils % (auto) 68.4 %; Platelet Count 202 K/uL (130-400); RDW Coefficient of Variation 12.9 % (11.5-14.5); RDW Standard Deviation 41.3 fL (36.4-46.3); White Blood Count 12.13 K/uL (4.8-10.8)
[2021-10-05 04:07] LABS: BUN Creatinine Ratio 12.1 (10-20); Calcium 9.5 mg/dl (8.5-10.1); Creatinine Clr Calc Pharmacy 184.7 ml/min; Est GFR (African American) 144.5 ml/min; Est GFR (Non-African American) 124.6 ml/min; Magnesium 2.3 mg/dl (1.8-2.4); Phosphorus 2.6 mg/dl (2.5-4.9); Potassium 4.2 mmol/L (3.5-5.1)
[2021-10-05] MEDS: ONDANSETRON INJ 2 MG/ML 2 ML VIAL IV PRN ×2 (04:18→13:21)
[2021-10-05] MEDS: D5W AND 1/2NSS + 20MEQ KCL 20 MEQ/1,000 ML BAG IV SCH (06:13)
[2021-10-05 07:33] LABS: Estimated Average Glucose 266 mg/dl; Hemoglobin A1C 10.9 % (4.5-5.6)
[2021-10-05 07:42] LABS: BUN Creatinine Ratio 11.9 (10-20); Calcium 8.8 mg/dl (8.5-10.1); Creatinine Clr Calc Pharmacy 189.4 ml/min; Est GFR (African American) 145.9 ml/min; Est GFR (Non-African American) 125.9 ml/min; Magnesium 2.2 mg/dl (1.8-2.4); Potassium 3.9 mmol/L (3.5-5.1)
[2021-10-05 07:43] LABS: Phosphorus 1.7 mg/dl (2.5-4.9)
[2021-10-05] MEDS: lisinopril 20 MG TAB PO SCH (08:26)
[2021-10-05] MEDS: FLUoxetine HCL 20 MG CAP PO SCH (08:26)
[2021-10-05] MEDS: PANTOprazole 40 MG in SYRINGE 0 ML IV SCH ×2 (08:26→20:13)
[2021-10-05] MEDS: INSULIN ASPART 100 UNITS/ML 3 ML PEN SC SCH ×5 (08:34→23:35)
[2021-10-05] MEDS: INSULIN GLARGINE SOLOSTAR 100 UNITS/ML 3 ML PEN SC SCH (08:34)
[2021-10-05] MEDS ORDERED: POTASSIUM PHOS 3 MMOL/1 ML INFUSION IV STA (09:37)
[2021-10-05] MEDS ORDERED: POTASSIUM PHOSPHATE 15 MMOL in SODIUM CHLORIDE 0.9% 250 ML IV ONE (10:00)
--- NOTE | 2021-10-05 15:23 | Pharmacy Report ---
Pharmacy Glycemic Short Note 2 - Date of Service October 05, 2021 - Glycemic Short BSG Results (Last 24 hours): 10/04/21 10/04/21 10/04/21 15:16 16:07 16:08 Glucose 199 H POC Glucose 172 H 184 H 10/04/21 10/04/21 10/04/21 17:11 18:09 20:18 Glucose POC Glucose 178 H 168 H 162 H 10/04/21 10/04/21 10/05/21 20:56 22:07 00:03 Glucose 168 H 165 H POC Glucose 162 H 10/05/21 10/05/21 10/05/21 00:21 01:14 02:10 Glucose POC Glucose 142 H 142 H 151 H 10/05/21 10/05/21 10/05/21 03:05 03:09 03:21 Glucose Cancelled 158 H POC Glucose 148 H 10/05/21 10/05/21 10/05/21 03:59 05:02 06:10 Glucose POC Glucose 159 H 177 H 205 H 10/05/21 10/05/21 10/05/21 07:07 08:06 11:18 Glucose 234 H POC Glucose 193 H 195 H OUTPATIENT ANTIDIABETIC REGIMEN: * A1C >14% (04/2021); new A1C pending * Lantus 88 units qAM * Humalog 30 units TIDWM * Ozempic 1mg sq weekly ASSESSMENT: 10/05 * Lantus started this morning then Insulin drip + IV fluids stopped by Dr Edgar later, anion gap closed * Basal bolus insulin and overnight checks * Patient still having stomach pain and not tolerating diet 10/04 * DKA in setting of N/V: * initial pH 7.32, HCO3-15; AG-20; Glu-350. (+) ketones * Pt NPO - on insulin drip per DKA protocol * Plan to assess needs from hourly drip rates and assist with conversion to SQ basal/bolus once pH normalized, anion gap is closed and HCO3>/= 15. * Novolog on board for carb coverage (per calculator) once patient ordered a diet * D51/2NS + 20mEq KCl @ 125mL/hr initiated for BSG <250mg/dL PLAN FOR INPATIENT GLYCEMIC CONTROL: * Hold outpatient oral diabetes medications * DC Insulin infusion * Lantus 88 units SQ Daily * Novolog - ACHS + 00, 04 checks * Goal range 110-140mg/dl * CF: 10 mg/dL/unit * Carb ratio: 1 unit per 3 grams CHO consumed
--- NOTE | 2021-10-05 16:59 | Hospitalist Progress Note ---
Date of Service October 05, 2021 Assessment & Plan (1) DKA (diabetic ketoacidosis): Plan: - Gap now closed s/p insulin gtt coupled with aggressive IVF hydration - Pt medicated this morning with his usual Lantus 88 units - Insulin gtt discontinued 2 hours after dose of Lantus - Accuchecks AC and HS -- pt per endocrine to be receiving 30 u Humalog w/ meals or reduce to 15 units if eating less or active - Pharmacy consulted for glycemic management, appreciate their assistance - Repeat a1c 10.9%, marked improvement from 14% back in April 2021 - Consult rn diabetes educator (2) Vomiting: Plan: Secondary to food borne illness - Resolved - Advance diet to clear liquids (3) Leukocytosis: Plan: - WBC 16 yesterday and down to 12 today with hydration - Suspect leukemoid reaction in setting of DKA - No evidence of infection, pt afebrile, no sx of infection, PCT and lactate WNL (4) Uncontrolled diabetes mellitus: Plan: Per #1 (5) Hypertension: Plan: - Continue Lisinopril 20mg daily - Systolic BP readings 140-150s over the past 24 hours - Will monitor, may need to consider increased dose of Lisinopril (6) Hyperlipidemia: Plan: - Not on lipid lowering medication as outpatient- continues with improving diabetic control and weight los - F/u with PCP (7) Depression: Plan: - Continue fluoxetine 20mg daily (8) ADHD: Plan: - Continue methylphenidate (9) Obesity (BMI 30-39.9): Plan: As above - is progressing through diabetes managment and encouragment - 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 I agree w/ the mallory components of her documentation. DKA resolved; insulin drip has been transitioned back over to SC insulin regimen. Adjust SC insulin regimen as needed. Pharmacy assistance much appreciated. Javan Edgar MD Subjective Jose Obregon was hospitalized 10/04 for DKA. Precipitating events according to patient include food borne illness (causing abd pain, n/v) after eating at [employer] on 10/03. Pt denies symptoms of infection including cough, joana estion, fever, chills, diarrhea, or gu symptoms. He reports feeling hungry and wanting to try to eat. He c/o stomach pain that he attributes to hunger. He voices no other complaints/concerns at this time. No further episodes of n/v. He is compliant with checking blood sugars at home and follows with endocrine. Last f/u was in July. Last known a1c prior to admission was 14%. He admits that his diet consists mainly of things that he can purchase at [employer], which includes a lot of frozen foods. Review of Systems Review of Systems: CONSTITUTIONAL: Denies weight loss/gain, fever and chills, fatigue, malaise, generalized weakness. HEENT: Denies changes in vision and hearing. RESPIRATORY: Denies SOB, cough, wheezing. CV: Denies palpitations, CP, lower extremity edema, orthopnea, PND. GI: (+) abdominal pain--due to hunger per pt. Denies nausea, vomiting and diarrhea. : Denies dysuria and urinary frequency, urgency, hesitancy. MUSCULOSKELETAL: Denies myalgia and joint pain. SKIN: Denies rash and pruritus. NEUROLOGICAL: Denies headache, syncope, focal weakness, numbness, tingling. PSYCHIATRIC: Denies recent changes in mood. Denies anxiety and depression. Physical Exam Physical Exam: GENERAL: 25 yo obese WM. Pleasant, cooperative. NAD. LUNGS: Clear to auscultation bilaterally. No accessory muscle use. No W/R/R. CARDIOVASCULAR: Regular rate and rhythm. No M/G/R. No JVD. ABDOMEN: Soft, non-tender and non-distended. No palpable masses. BS normoactive x 4. EXTREMITIES: No edema. Non-tender. Peripheral pulses +2/4. PSYCHIATRIC: Cooperative. Appropriate mood and affect. SKIN: Warm, dry, intact. No rashes or lesions. Results & Data Results & Data ([facility]) Vital Signs (Past 12 Hours) Vital Signs Temp Pulse Pulse Resp BP Pulse Ox 10/05/21 14:59 74 10/05/21 14:54 66 18 154/89 H 100 10/05/21 11:39 36.7 C 72 18 148/80 H 99 10/05/21 06:34 36.5 C 71 18 143/92 H 98 10/05/21 04:44 36.7 C 90 22 146/95 H 100 Laboratory Results 10/05/21 03:09 10/05/21 07:07 Hemoglobin A1c=10.9% Phosphorous=1.7 Magnesium=2.[address] performed w/ contrast on 10/03: 1. no bowel wall thickening or obstruction 2. normal appendix 3. hepatic steatosis PG Care Time/CCT Total # of Minutes Spent Total Time Spent with Patient: Total time spent is greater than 50% in coordination of care (as documented) at patient's floor/unit and/or counseling patient: Coding Level of Care Code 61737 Subseq Hosp Care Lvl 2 Diagnoses DKA (diabetic ketoacidosis) E11.10 Vomiting R11.10 Leukocytosis D72.829 Uncontrolled diabetes mellitus E11.65 Diabetes mellitus type: type 2 Glycemic state: with hyperglycemia Hypertension I10 Hyperlipidemia E78.5 Depression F32.9 ADHD F90.9 Obesity (BMI 30-39.9) E66.9 (1) Uncontrolled diabetes mellitus Diabetes mellitus type: type 2 Glycemic state: with hyperglycemia Qualified Code(s): E11.65 - Type 2 diabetes mellitus with hyperglycemia
[2021-10-05] MEDS: ENOXAPARIN INJ 40 MG/0.4 ML SYR SQ SCH (17:04)
[2021-10-06] MEDS: ONDANSETRON INJ 2 MG/ML 2 ML VIAL IV PRN ×2 (00:51→12:45)
[2021-10-06] MEDS: INSULIN ASPART 100 UNITS/ML 3 ML PEN SC SCH ×3 (04:17→12:37)
[2021-10-06 07:46] LABS: Basophils # (auto) 0.01 K/uL (0-0.2); Basophils % (auto) 0.1 %; Eosinophils # (auto) 0.02 K/uL (0-0.5); Eosinophils % (auto) 0.2 %; Hematocrit (blood only) 44.1 % (42-52); Hemoglobin 15.5 g/dL (14.0-18.0); Immature Granulocytes # (auto) 0.01 K/uL (0.00-0.02); Immature Granulocytes % (auto) 0.1 %; Lymphocytes # (auto) 1.48 K/uL (1.2-3.4); Lymphocytes % (auto) 17.6 %; Mean Corpuscular Hemoglobin 29.6 pg (25-34); Mean Corpuscular Hgb Conc 35.1 g/dL (32-36); Mean Corpuscular Volume 84.3 fL (80-100); Mean Platelet Volume 11.1 fL (7.4-10.4); Monocytes # (auto) 0.74 K/uL (0.11-0.59); Monocytes % (auto) 8.8 %; Neutrophils # (auto) 6.16 K/uL (1.4-6.5); Neutrophils % (auto) 73.2 %; Platelet Count 186 K/uL (130-400); RDW Coefficient of Variation 12.5 % (11.5-14.5); RDW Standard Deviation 38.4 fL (36.4-46.3); Red Blood Count 5.23 M/uL (4.7-6.1); White Blood Count 8.42 K/uL (4.8-10.8)
[2021-10-06 08:28] LABS: BUN Creatinine Ratio 15.4 (10-20); Blood Urea Nitrogen 8 mg/dl (7-18); Calcium 8.8 mg/dl (8.5-10.1); Carbon Dioxide 21 mmol/L (21-32); Chloride 101 mmol/L (98-107); Creatinine Clr Calc Pharmacy 309.3 ml/min; Est GFR (African American) > 150.0 ml/min; Est GFR (Non-African American) > 150.0 ml/min; Glucose 201 mg/dl (70-99); Magnesium 1.9 mg/dl (1.8-2.4); Potassium 3.3 mmol/L (3.5-5.1); Sodium 134 mmol/L (136-145)
[2021-10-06] MEDS: INSULIN GLARGINE SOLOSTAR 100 UNITS/ML 3 ML PEN SC SCH (09:09)
[2021-10-06] MEDS: FLUoxetine HCL 20 MG CAP PO SCH (09:15)
[2021-10-06] MEDS: lisinopril 20 MG TAB PO SCH (09:16)
[2021-10-06] MEDS: PANTOprazole 40 MG in SYRINGE 0 ML IV SCH (09:18)
[2021-10-06] MEDS ORDERED: POTASSIUM CHLORIDE CRTAB 20 MEQ TABCR PO STA (09:43)
--- NOTE | 2021-10-06 09:47 | Discharge Summary ---
Date of Service October 06, 2021 Admission HPI Per Admitting Provider 25 YOM with past medical history of: HTN, DM II (on insulin, ozempic and metformin), HLD, Obesity. Patient comes to the EMD today for complaints of continued nausea/vomiting with inability to stay hydrated. Patient reports eating chicken nuggets at [place] on , he made it 1/[address] through his meals ~20min before he had onset of nausea followed by vomiting. He was seen in the EMD yesterday for same complaint, however at that time he felt better following IVF and antinausea medications, he did not have evidence of DKA at that time, with normal HCO3 but with hyperglycemia. Today upon evaluation he has elevated BG, HCO3 15, with AG 20 and PH 7.32. Patient has not vomited since coming to the EMD, but endorses that his vomiting is light brown in color with some brown chunks in it, no blood or mucous. His last BM was morning and was normal. He has not developed any diarrhea. He has not had any food intake since evening secondary to nausea and vomiting. He is unable to keep water down so he has not been drinking to replace his losses. The patient voided this morning which was dark barbara in color. His UA revealed SG of 1.039, mild protein, Ketones and Glucose, no blood and no bacteria. He had routine labs performed as well. CBC is notable for WBC 18 and HGB of 18 with Neutrophil predominance of 14. Although likely food borne illness this also has great degree of hemoconcentration to it. Patient will be admitted for rehydration, insulin infusion with DKA protocol, monitoring lab results and resolution of symptoms. Lacate pending, po4 pending, PCT pending. Patient has had his COVID vaccine and his COVID test on admission is: NEGATIVE Principal Diagnosis DKA induced from food borne illness (resolved) Discharge Exam Vital Signs Temp Pulse Pulse Resp BP Pulse Ox 10/06/21 11:54 36.6 C 76 16 157/90 H 99 10/06/21 06:54 37.1 C 74 18 135/83 98 10/06/21 03:19 37.6 C H 68 16 127/70 99 10/05/21 23:16 36.9 C 87 19 108/64 97 10/05/21 23:11 100 H 10/05/21 20:52 37.7 C H 80 16 137/85 99 10/05/21 14:59 74 10/05/21 14:54 66 18 154/89 H 100 GENERAL: 25 yo obese WM. Pleasant, cooperative. NAD. LUNGS: Clear to auscultation bilaterally. No accessory muscle use. No W/R/R. CARDIOVASCULAR: Regular rate and rhythm. No M/G/R. No JVD. ABDOMEN: Soft, non-tender and non-distended. No palpable masses. BS normoactive x 4. EXTREMITIES: No edema. Non-tender. Peripheral pulses +2/4. PSYCHIATRIC: Cooperative. Appropriate mood and affect. SKIN: Warm, dry, intact. No rashes or lesions. Discharge Data Allergies Allergy/AdvReac Type Severity Reaction Status Date / Time No Known Allergies Allergy Verified 10/07/21 13:36 Consultations religious educator Procedures Performed None Ordered Studies 10/06/21 07:16 10/06/21 07:[address] WITH IV CONTRAST 10/03/21 CT DOSE: 1983.61 mGy.cm HISTORY: Left-sided abdominal pain. TECHNIQUE: Multiaxial CT images of the abdomen and pelvis were performed following the use of intravenous contrast. A dose lowering technique was utilized adhering to the principles of ALARA. COMPARISON STUDY: None. FINDINGS: The lung bases are clear. No pneumoperitoneum. No pneumatosis. Old, h ealed left pubic fractures are noted. There is a partially visualized intramedullary sebastián within the proximal left femur. No acute fracture or dislocation within the visualized osseous structures. Subcentimeter anterior pericardial lymph node. This is of doubtful clinical significance. Hepatic steatosis. The gallbladder, pancreas, spleen, adrenal glands, and left kidney are unremarkable. There is 9 mm hypodense lesion within the upper pole the right kidney. This is technically too small to characterize but statistically represents a cyst. No hydronephrosis. No retroperitoneal lymphadenopathy. The main portal vein is patent. Normal bladder. No bowel wall thickening or obstruction. Normal appendix. IMPRESSION: 1. No bowel wall thickening or obstruction. 2. Normal appendix. 3. Hepatic steatosis. ACT 112: Negative or not required by law. Electronically signed by: Phani Carlson M.D. KUB X-Ray 10/04/21 08:22 KUB HISTORY: Generalized abdominal pain COMPARISON: Abdomen and pelvis CT 10/03/2021. FINDINGS: The bowel gas pattern is unremarkable. There are no dilated loops of small bowel to suggest an obstruction. No renal calculi. No ureteral calculi. Calcifications in the deep pelvis likely represent phleboliths. There are old, healed left pubic ring fractures. No pneumoperitoneum or pneumatosis. IMPRESSION: No evidence for bowel obstruction. ACT 112: Negative or not required by law. Electronically signed by: Phani Carlson M.D. 10/04/2021 9:51 AM Chest X-Ray 10/04/21 08:23 XR chest 1V portable CLINICAL HISTORY: pain TECHNIQUE: Single frontal radiograph of the chest was obtained. Comparison: Comparison is made to chest and abdomen radiographs 09/16/2018 FINDINGS: No lines and tubes are seen. The cardiomediastinal silhouette is normal. The lungs are clear. No evidence of pleural effusion or pneumothorax. IMPRESSION: No acute chest disease. ACT 112: Negative or not required by law. Electronically signed by: Iker Sunshine M.D. 10/04/2021 9:29 AM Diabetes Follow up Follow up with endocrine this week - a1c down from 14% in April 2021 to 10.9% this visit Hospital Course (1) DKA (diabetic ketoacidosis): - Gap now closed s/p insulin gtt coupled with aggressive IVF hydration - Pt medicated this morning with his usual Lantus 88 units - Insulin gtt discontinued 2 hours after dose of Lantus - Accuchecks AC and HS -- pt per endocrine to be receiving 30 u Humalog w/ meals or reduce to 15 units if eating less or active - Pharmacy consulted for glycemic management, appreciate their assistance - Repeat a1c 10.9%, marked improvement from 14% back in April 2021 - Consult staff educator (2) Vomiting: Secondary to food borne illness - Resolved - Diet advanced to clear liquids of which he tolerated yesterday - Diet advanced to diabetic carb consistent today 10/05, and he is tolerating (3) Leukocytosis: - Resolved, suspect was secondary to leukemoid reaction in setting of DKA (4) Uncontrolled diabetes mellitus: Per #1 Schedule f/u appt with endocrine, call their office this week to see before the upcoming holiday (5) Hypertension: - Continue Lisinopril 20mg daily - Systolic BP readings 140-150s over the past 24 hours - Will monitor, may need to consider increased dose of Lisinopril - Follow up with PCP (6) Hyperlipidemia: - Not on lipid lowering medication as outpatient- continues with improving diabetic control and weight los - F/u with PCP (7) Depression: - Continue fluoxetine 20mg daily (8) ADHD: - Continue methylphenidate (9) Obesity (BMI 30-39.9): As above - is progressing through diabetes managment and encouragment - will need to lower BMI for chcf CVD and DM mortality/morbidity (10) Hypokalemia: - Attempted replacement but size of pill causes him to gag and have episode of emesis - Ordered KCl 40 meq in elixer form - Increase potassium in diet medically stable for discharge home today, f/u with pcp and endocrine Total Time Total Time Spent Total Time Spent (In Minutes): >30 minutes Discharge Plan Discharge Items Patient Disposition: Home - Self-Care Reason For Visit: N/V DKA, HYPOLEMIZ Discharge Diagnosis: DKA Activity: Resume your previous activity Non-emergency contact: Primary Care Provider Call non-emergency contact if: you have any medication questions Follow-up/Referrals: Brian Camp DO [Primary Care Provider] - Diet: Carb Count or DM1 Addtl Attending Provider Instructions: 1. Take all medications as directed. 2. Follow diabetic diet 3. Use insulin as instructed with glucose checks in AM before eating/drinking and before meals 4. Incorporate aerobic exercise at least 30 minutes every day 5. Call Endocrine clinic on Sunday 10/07 to schedule follow up appt before . 6. F/U with family doctor within 1 week of discharge. Pending Studies at Discharge: No Stand-Alone Forms: My [facility] [employer], Smoking Cessation Medications and DC Order Prescriptions: Continued metformin 500 mg tablet 1,000 mg PO BID 90 Days Qty: 360 RF: 1 Hold Instructions: DKA, GI bug (DME) pen needle, diabetic [BD Ultra-Fine Amanda Pen Needle] 32 gauge x 5/32" needle See Rx Instructions .ROUTE .MEDSUPPLY Qty: 150 RF: 5 Humalog KwikPen Insulin 200 unit/mL (3 mL) insulin pen See Rx Instructions subcut BID Qty: 30 RF: 5 methylphenidate HCl [Concerta] 54 mg tablet extended release 24hr 54 mg PO QAM RF: 0 fluoxetine 20 mg tablet 20 mg PO QAM RF: 0 lisinopril 20 mg Tablet 20 mg PO QAM RF: 0 Lantus Solostar U-100 Insulin 100 unit/mL (3 mL) insulin pen 88 unit subcut QAM RF: 0 Ozempic 1 mg/dose (2 mg/1.5 mL) pen injector 1 mg subcut WK RF: 0 Hold Instructions: DKA, GI bug No Action (DME) lancets [OneTouch Delica Plus Lancet] 33 gauge misc See Rx Instructions .ROUTE .MEDSUPPLY Qty: 400 RF: 3 (DME) OneTouch Verio test strips Strip See Rx Instructions .ROUTE .MEDSUPPLY Qty: 400 RF: 3 Discharge Orders: Discharge Order (Routine); Ordered 10/06/21 Ordered By: Kirstin Byrnes/Other Patient Handouts: Managing Type 1 Diabetes Admission Data Admit Date/Time: 10/04/21 11:13 Attending Provider: Javan Edgar Admit Provider: Brian Guzman Primary Care Provider: Brian Camp Other Providers: Brian Guzman Other Interventions: Discharge Summary Assessment (RN) Last Done: 10/06/21 14:54 Supervising Physician Co-Signing Physician Notes Attending Attestation and Discharge Note - Pt seen/examined, chart reviewed, care plan d/w VIDYA Grace. I agree w/ the mallory components of her documentation. 25yo male with obesity & T1DM who presented with DKA. Treated in the customary fashion with IV insulin, IV fluids, and electrolyte replacement. Anion gap closed and patient was transitioned back to SC insulin regimen. BSGs were about 200 or less by time of discharge. He will need close f[facility] after discharge for ongoing care and adjustment of his insulins. Discharge exam - gen - NAD, pleasant mouth - MMM, no thrush heart - RRR, s1 s2 lungs - CTA b/l abd - soft NT ND BS+ ext - no edema, pulses 2+ b/l Javan Edgar MD Coding Level of Care Code D/C DAY MANAGEMENT >30 MINS Diagnoses DKA (diabetic ketoacidosis) E11.10 Vomiting R11.10 Leukocytosis D72.829 Uncontrolled diabetes mellitus E11.65 Diabetes mellitus type: type 2 Glycemic state: with hyperglycemia Hypertension I10 Hyperlipidemia E78.5 Depression F32.9 ADHD F90.9 Obesity (BMI 30-39.9) E66.9 Hypokalemia E87.6
[2021-10-06] MEDS ORDERED: POTASSIUM CHLORIDE CRTAB 20 MEQ TABCR PO ONE (12:00)
[2021-10-06] MEDS ORDERED: POTASSIUM CHLORIDE 20 MEQ/15 ML UDC PO STA (14:54)
== END 2021-10-06 16:51 | disposition home or self-care (01) | DRG 639 ==
LOC: ED 07:47 → SUATTDRO 11:13 → 2S 11:13
DX: F32.A Depression, unspecified; F90.9 Attention-deficit hyperactivity disorder, unspecified type; E87.6 Hypokalemia; Z79.4 Long term (current) use of insulin; E11.10 Type 2 diabetes mellitus with ketoacidosis without coma; E66.9 Obesity, unspecified; E78.5 Hyperlipidemia, unspecified; I10 Essential (primary) hypertension; Z68.37 Body mass index [BMI] 37.0-37.9, adult; Z83.3 Family history of diabetes mellitus; A08.8 Other specified intestinal infections